=== PATIENT | female | born 2005 | race Caucasian/White ===

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

== ENCOUNTER 2023-09-21 07:00 | Outpatient (RCR) | payer OTHER, SELFPAY ==
--- NOTE | 2023-08-22 16:21 | HP.PTEVAL ---
Patient's Visit Information Visit Information Visit Information: MATTHEW SPICER is a 18 year old F referred to Physical Therapy by Dr. Ted Sultana MD with a diagnosis of CALVE PAIN ,TIGHT G-S ,TIGHT HAMSTRINGS BILATERAL BILATERALLY. Date of Evaluation: 08/22/23 Physical Therapist: Tan Nascimento, PT, Cert MDT, OCS Visit Plan Frequency: 1-2x /Week Duration: 8 WEEKS Plan: PT INTERVENTIONS CALF/HAMSTRING FLEXABILITY ,FOAM ROLLING /STICK/HAWK /CALF ,STRENGTHENING HIPS ,AND FUNCTIONAL STRENGTHENING TO AIDE IN RUNNING PLAN TO GET NEW ORTHOTICS Subjective Subjective: This 18 y/o female presents to physical therapy with and calve pain ,tightness. hamstrings tightness Patient has intermittent hamstring and calf pain ~ 4 years ago. This occurred with running . Patient started running again and pain returned. Located bilateral calve medial which occurs with running. Seen Dr aiden PT. Patient denies paresthesia/tingling. Patient has no symptom with general activity. Sleeping good. No imaging or medication. Aggravating running . Alleviating not running. Patient has been interval training and attempted to 02/06 . Patient condition affects ability to exercise . Goal no pain with running. SOCIAL: single VOCATION: Student Objective Objective: POSTURE: pes planus GAIT: ambulates with pes planus slight knee valgus PALAPTION: ,medial GS tender FLEXABILITY: hamstrings mod tight ,mod G-S MOD LUMBAR ROM: flexion WFL , extension WNL ,side glides WFL MMT: quads/hams 4/5 ,ankle stabilizers 5/5 ,( peak force) hip flexion 32.7 right ,left 33.2 ,hip abduction 32.8 right ,left 32.1 Special Tests L/S Slump test left side: Negative L/S Slump test right side: Negative L/S Left Straight Leg Raise: Negative L/S Right Straight Leg Raise: Negative Balance/Special Test Scores Lower Extremity Functional Score: 56 Goals Goal 1:: Patient to be I with HEP Goal Time Frame: 4-6 Weeks Goal 2:: Patient to demonstrate 70% improvement with less pain with running in calfs Goal Time Frame: 4-6 Weeks Goal 3:: Patient to improve peak force hip by 10 # to improve ability to run Goal Time Frame: 4-6 Weeks Goal 4:: Patient to improve LFES score by 5 points to improve gait and function Goal Time Frame: 4-6 Weeks Goal 5:: Patient improve ability to run with 1 1/2 miles with pain less 1-2/10 Goal Time Frame: 4-6 Weeks Rehabilitation Potential Physical Therapy Diagnosis: This patient has pain from running with pain medial calf from pes planus ,tight hamstrings , and weak hips Rehabilitation Potential: Good Anticipated Interventions Patient/Client Instruction: Educate patient on: Condition and Plan of Care For the Purpose of:: To decrease pain, To increase ROM, To improve muscle performance and motor function, To improve ability to perform ADL's, To increase tolerance to activity/condition/position, To improve ability of physical actions for home/community/work/leisure, To improve health of tissue, To decrease soft tissue restriction, To increase flexibility/ROM, To improve endurance and Other Other: RUNNING/JOGGING Therapeutic Exercise to Include: Strength training, Endurance training, Balance training, Flexibilty training and Dynamic Lumbar Stabilization For the Purpose of:: To decrease pain, To increase ROM, To improve muscle performance and motor function, To increase tolerance to activity/condition/position, To improve ability of physical actions for home/community/work/leisure, To improve health of tissue, To decrease soft tissue restriction, To increase flexibility/ROM, To reduce risk of recurrence and To improve tolerance to ADL's Manual Therapy Techniques to Include: Soft tissue mobilization Comment: CALF -STICK/FOAM For the Purpose of:: To decrease pain, To improve ability to perform ADL's, To increase tolerance to activity/condition/position, To improve performance and independence with ADL's, To improve ability of physical actions for home/community/work/leisure, To improve health of tissue, To decrease soft tissue restriction, To increase flexibility/ROM and To improve tolerance to ADL's Text: Thank you for the opportunity to evaluate your patient. For Medicare and Medicare HMO plans, please review the plan of care and approve it. It will need to be FAXED BACK to us at [phone] for Medicare purposes. For Medicare only, by signing this I certify the plan of care. Please let me know if there are questions or concerns regarding this plan of care. Physician Signature: Date:
--- NOTE | 2023-09-21 07:38 | HP.PTDCSUM ---
Discharge Summary D/C summary: It has been my pleasure to treat MATTHEW SPICER referred by Dr. Ted Sultana MD, with the diagnosis of CALVE PAIN ,TIGHT G-S ,TIGHT HAMSTRINGS BILATERAL BILATERALLY for a total of 9 visit(s). Discharge Date: 09/21/23 Please see the following information for a summary of their discharge status. Subjective Subjective: Doing well ..dont running Overall Improvement % Improvement: 70 Objective Objective/Function: POSTURE: pes planus GAIT: ambulates with pes planus slight knee valgus PALAPTION: ,medial GS tender FLEXABILITY: hamstrings mod tight ,mod G-S MOD LUMBAR ROM: flexion WFL , extension WNL ,side glides WFL MMT: quads/hams 4/5 ,ankle stabilizers 5/5 ,( peak force) hip flexion 32.7 right ,left 38.2 ,hip abduction 38.8 right ,left 38.1 Goals Goal 1:: Patient to be I with HEP Goal Progress: Goal Met Goal 2:: Patient to demonstrate 70% improvement with less pain with running in calfs Goal Progress: Goal Met Goal 3:: Patient to improve peak force hip by 10 # to improve ability to run Goal Progress: Goal Met Goal 4:: Patient to improve LFES score by 5 points to improve gait and function Goal Progress: Goal Met Goal 5:: Patient improve ability to run with 1 1/2 miles with pain less 1-2/10 Goal Progress: Goal Met Plan Plan: D/C D/C Information Discharge Comments: HEP d/c sentence: If there are questions or concerns regarding this patient's physical therapy, please feel free to call me at [phone]. Thank you for the referral of this patient. Sincerely, Tan Nascimento, PT, Cert MDT, OCS Balance/Gait/Functional tests Balance/Special Test Scores Lower Extremity Functional Score: 75 Improvement % Improvement: 70
== END 2023-09-21 12:45 | disposition home or self-care (01) ==
LOC: PT 07:00
PROVIDERS: PCP Family Medicine; Visit Provider Family Medicine
DX: M62.461 Contracture of muscle, right lower leg (principal); M62.462 Contracture of muscle, left lower leg; M62.48 Contracture of muscle, other site
CPT/HCPCS: 97110; 97140; 97162; 97530